=== PATIENT | female | born 1970 | race Caucasian/White ===

== ENCOUNTER 2018-02-23 21:03 | Emergency (ER) | payer BC ==
[~2018-02-23] VITALS: Ht 160 cm; Wt 75.0 kg
[2018-02-23 21:11] VITALS: BP 138/77
[2018-02-23] MEDS ORDERED: CEPH500C5 PO (21:33)
== END 2018-02-23 21:47 | disposition home or self-care (01) ==
LOC: ER 21:04
DX: N61.0 Mastitis without abscess (principal)
CPT/HCPCS: 99283